=== PATIENT | female | born 1940 | race Caucasian/White ===

== ENCOUNTER → 2017-12-12 | Outpatient (CLI) | payer OTHER ==
[~2017-12-12] MED LIST: ATENOLOL PO; TETRACYCLINE
== END ==
LOC: M.MRI 13:11
DX: M54.12 Radiculopathy, cervical region (principal); R20.0 Anesthesia of skin; M47.892 Other spondylosis, cervical region

== ENCOUNTER → 2018-05-14 | Outpatient (CLI) | payer OTHER | LOC: M.ULTRA 15:30 | DX: M79.89 Other specified soft tissue disorders (principal); M79.605 Pain in left leg ==